=== PATIENT | female | born 1980 | race American Indian/Alaskan Native ===

== ENCOUNTER 2019-05-27 15:12 | Emergency (ER) | payer OTHER, MEDICAID ==
[2019-05-27 15:42] VITALS: BP 114/57
[2019-05-27] MEDS ORDERED: IBUPROFEN 800 MG TAB PO ONE (16:00)
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
== END 2019-05-27 17:00 | disposition home or self-care (01) ==
LOC: ED 15:12
DX: M79.605 Pain in left leg (principal); M54.9 Dorsalgia, unspecified; Z79.899 Other long term (current) drug therapy
CPT/HCPCS: 72100